=== PATIENT | male | born 1955 | race Caucasian/White ===

== ENCOUNTER 2018-07-07 05:40 | Emergency (ER) | payer MEDICARE ==
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
[2018-07-07] MEDS ORDERED: ASPIRIN 81 MG CHEW PO ONE (05:45)
[2018-07-07] MEDS: NITROGLYCERIN 0.4 MG SUBL SL SCH ×2 (06:03→07:05)
[2018-07-07] MEDS ORDERED: ASPI-1471 PO (06:13)
[2018-07-07] MEDS ORDERED: ATOR40TA24 PO (06:13)
[2018-07-07 06:18] LABS: PLATELET COUNT, AUTOMATED 242 K/uL (150-450)
--- NOTE | 2018-07-07 06:20 | EKG ---
FACILITY: [facility] PATIENT NAME: TOLU ESPINOSA : [id number] MR: [id number] V: [id number] EXAM DATE: ORDERING PHYSICIAN: KOTA KOROMA TECHNOLOGIST: [place]MA Test Reason : CARDIAC Blood Pressure : / mmHG Vent. Rate : 072 BPM Atrial Rate : 072 BPM P-R Int : 142 ms QRS Dur : 096 ms QT Int : 414 ms P-R-T Axes : 054 011 031 degrees QTc Int : 453 ms Sinus rhythm Possible Left atrial enlargement Nonspecific ST findings anterior leads Borderline ECG No previous ECGs available Confirmed by BEAU MACIAS ([id number]) on 07/07/2018 6:25:18 AM Referred By: Confirmed By:BEAU MACIAS
[2018-07-07 06:25] LABS: INR 0.97
--- NOTE | 2018-07-07 06:27 | RADIOLOGY IMAGING REPORT ---
FACILITY: [facility] PATIENT NAME: Benny Rangel : 1955 MR: [id number] V: [id number] EXAM DATE: ORDERING PHYSICIAN: KOTA KOROMA TECHNOLOGIST: Location: Patient: Benny Rangel : 1955 Visit/Account:[id number] Date of Sevice: 07/07/2018 AP CHEST 07/07/2018 5:42 AM. INDICATION: Chest pain. History of myocardial infarction and CABG. COMPARISON: None. FINDINGS: Lungs are well-expanded. There is no consolidation. No pleural effusion or pneumothorax. Heart size i s normal. Postoperative changes to the mediastinum/sternum consistent with CABG. IMPRESSION: No acute abnormality. Report Dictated By: Vinod Bojorquez MD at 07/07/2018 6:21 AM Report E-Signed By: Vinod Bojorquez MD at 07/07/2018 6:23 AM WSN:[id number]
[2018-07-07] MEDS ORDERED: NITROGLYCERIN OINT 1 GM PKT TP ONE (11:05)
[2018-07-07] MEDS ORDERED: NITROGLYCERIN 0.4 MG SUBL SL ONE (11:05)
[2018-07-07 12:30] VITALS: BP 118/81
[2018-07-07] MEDS ORDERED: ENOXAPARIN 100 MG/ML SYR SC SCH (12:30)
== END 2018-07-07 12:53 | disposition short-term general hospital (02) ==
LOC: ER 06:20
DX: I20.0 Unstable angina (principal); I10 Essential (primary) hypertension
CPT/HCPCS: 36415; 71045; 83880; 84484; 85025; 85610; 85730; 93005; 96372; 99285; A9270; J1650; 82040; 82247; 82310; 82374; 82435; 82565; 82947; 84075; 84132; 84155; 84295; 84450; 84460; 84520

== ENCOUNTER → 2018-07-07 | Outpatient (CLI) | payer MEDICARE ==
[~2018-07-07] MED LIST: ASPI-1471 PO; ATOR40TA24 PO
== END ==
LOC: AMB 12:24
PROVIDERS: ATTEND Nurse Practitioner
DX: I21.4 Non-ST elevation (NSTEMI) myocardial infarction (principal); R07.89 Other chest pain; R11.2 Nausea with vomiting, unspecified; F41.9 Anxiety disorder, unspecified; R45.1 Restlessness and agitation
CPT/HCPCS: A0425; A0426